=== PATIENT | female | born 1995 | race Caucasian/White ===

== ENCOUNTER 2023-07-30 14:59 | Emergency (ER) | payer BC, SELFPAY ==
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
[2023-07-30 15:06] VITALS: BP 121/86; PULSE 100; RESP 118; TEMP 37; O2SAT 100
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
[2023-07-30] MEDS: CYCLOBENZAPRINE HCL 10 MG TABLET PO (16:18)
[2023-07-30] MEDS: DOXYCYCLINE HYCLATE 100 MG TABLET PO (16:18)
[2023-07-30] MEDS: ACETAMINOPHEN 500 MG TABLET 1000 MG PO (16:19)
[2023-07-30] MEDS: metroNIDAZOLE 250 MG TABLET 500 MG PO (16:19)
[2023-07-30] MEDS: TETANUS,DIPHTHERIA,AC PERTUSSIS ADULT (0.5 ML) BOOSTRIX IM (16:19)
[2023-07-30 17:19] LABS: HIV 1/2 Ab P24 Ag Result Negative (Negative)
[2023-07-30 18:49] LABS: Hepatitis B Surface Anti Res Negative; Hepatitis C Virus Antibody Negative (Negative)
== END 2023-07-30 18:55 | disposition home or self-care (01) ==
PROVIDERS: Emergency Provider Emergency Medicine
DX: S41.152A Open bite of left upper arm, initial encounter (principal); S16.1XXA Strain of muscle, fascia and tendon at neck level, initial encounter; Z23 Encounter for immunization; Y04.1XXA Assault by human bite, initial encounter; Y04.8XXA Assault by other bodily force, initial encounter
CPT/HCPCS: 36415; 72125; 73130; 86703; 86706; 86803; 90471; 90715; 99284; A9270; G0432